=== PATIENT | female | born 1985 | race Caucasian/White ===

== ENCOUNTER 2017-10-03 16:36 | Emergency (ER) | payer MEDICAID ==
[~2017-10-03] VITALS: Ht 162.6 cm; Wt 60.0 kg
[~2017-10-03 16:36] MED LIST: NAPR-1176; PRED-276
[2017-10-03] MEDS ORDERED: MORPHINE SULFATE 4 MG/ML CPJ (NOT FOR IM USE) IV STA (17:56)
[2017-10-03] MEDS ORDERED: KETOROLAC 30MG/ML VIAL IV STA (17:56)
[2017-10-03] MEDS ORDERED: SODIUM CHLORIDE 0.9% 1,000 ML IV ONE (17:56)
[2017-10-03] MEDS ORDERED: ONDANSETRON HCL 4MG/2ML VIAL IV STA (17:56)
[2017-10-03 19:14] LABS: BASOPHILS % 0.3 % (0.0-2.0); EOSINOPHILS % 0.4 % (0.0-5.0); HEMATOCRIT. 38.1 % (36.0-48.0); HEMOGLOBIN. 12.5 g/dL (12.0-16.0); LYMPHOCYTES % 18.7 % (20.0-50.0); MEAN CORPUSCULAR HEMOGLOBIN 24.9 pg (28.0-32.0); MEAN CORPUSCULAR VOLUME 76.2 fL (81.0-99.0); MEAN PLATELET VOLUME 9.9 fl (7.4-10.4); MONOCYTES % 9.5 % (2.0-8.0); NEUTROPHILS % 71.1 % (40.0-76.0); PLATELET 358 x1000/uL (130-400); RED BLOOD CELL COUNT 4.99 mill/uL (4.2-5.4); RED CELL DISTRIBUTION WIDTH 14.1 % (11.6-14.6)
[2017-10-03 19:20] LABS: CHLORIDE 104 mEq/L (98-107)
[2017-10-03 19:45] LABS: B-HCG QUANTITATIVE 70668 mIU/mL (<3)
[2017-10-03 21:30] VITALS: BP 106/63
== END 2017-10-03 21:43 | disposition home or self-care (01) ==
LOC: ER 16:36
DX: O26.891 Other specified pregnancy related conditions, first trimester (principal); M25.512 Pain in left shoulder; R10.30 Lower abdominal pain, unspecified; Z3A.08 8 weeks gestation of pregnancy; V49.88XA Car occupant (driver) (passenger) injured in other specified transport accidents, initial encounter; Y93.89 Activity, other specified; Y92.89 Other specified places as the place of occurrence of the external cause; Y99.8 Other external cause status
CPT/HCPCS: 36415; 76801; 76817; 80053; 81025; 84702; 85025; 86850; 86900; 86901; 96374; 96375; 99285; J2270; J2405; J7030; Z7610

== ENCOUNTER 2020-01-05 21:41 | Emergency (ER) | payer MEDICAID ==
[~2020-01-05] VITALS: Ht 154.9 cm; Wt 71.0 kg
[2020-01-05] MEDS ORDERED: KETOROLAC 60MG/2ML VIAL IM ONE (22:30)
[2020-01-05 23:02] LABS: BASOPHILS % 0.5 % (0.0-2.0); EOSINOPHILS % 4.7 % (0.0-5.0); HEMATOCRIT. 39.1 % (36.0-48.0); HEMOGLOBIN. 12.6 g/dL (12.0-16.0); LYMPHOCYTES % 26.4 % (20.0-50.0); MEAN CORPUSCULAR HEMOGLOBIN 23.9 pg (28.0-32.0); MEAN PLATELET VOLUME 8.9 fl (7.4-10.4); MONOCYTES % 8.2 % (2.0-8.0); NEUTROPHILS % 60.2 % (40.0-76.0); PLATELET 411 x1000/uL (130-400); RED BLOOD CELL COUNT 5.28 mill/uL (4.2-5.4); RED CELL DISTRIBUTION WIDTH 15.2 % (11.6-14.6)
[2020-01-05 23:09] LABS: CHLORIDE 107 mEq/L (98-107)
[2020-01-05 23:18] LABS: HCG SCREEN NEGATIVE
[2020-01-06 00:30] VITALS: BP 119/73
[2020-01-06 01:55] LABS: CLARITY URINE CLEAR (CLEAR); COLOR URINE YELLOW (YELLOW); KETONES URINE NEGATIVE (NEGATIVE); LEUKOCYTE ESTERASE URINE 1+ (NEGATIVE); NITRITE URINE NEGATIVE (NEGATIVE); OCCULT BLOOD URINE NEGATIVE (NEGATIVE); PROTEIN URINE NEGATIVE (NEGATIVE); SPECIFIC GRAVITY URINE 1.017 (1.005-1.030); UROBILINOGEN URINE 0.2 E.U./dL (0.2-1.0)
== END 2020-01-06 03:30 | disposition home or self-care (01) ==
LOC: ER 21:41
DX: N30.00 Acute cystitis without hematuria (principal); M19.90 Unspecified osteoarthritis, unspecified site; Z90.81 Acquired absence of spleen; Z88.0 Allergy status to penicillin; Z91.012 Allergy to eggs; Z91.018 Allergy to other foods
CPT/HCPCS: 36415; 76830; 76856; 80053; 81003; 84703; 85025; 93005; 96372; 99285

== ENCOUNTER 2021-01-18 08:53 | Emergency (ER) | payer BC, MEDICAID ==
[~2021-01-18] VITALS: Ht 152.4 cm; Wt 66.0 kg
[2021-01-18 08:58] VITALS: BP 111/56
[2021-01-18] MEDS ORDERED: P50 MT (09:15)
[2021-01-18] MEDS ORDERED: DICL75TA5 MT (09:16)
== END 2021-01-18 17:27 | disposition home or self-care (01) ==
LOC: ER 09:48
DX: M06.831 Other specified rheumatoid arthritis, right wrist (principal); Z91.14 Patient's other noncompliance with medication regimen; Z90.81 Acquired absence of spleen; Z91.012 Allergy to eggs; Z91.014 Allergy to mammalian meats; Z88.0 Allergy status to penicillin
CPT/HCPCS: 99283

== ENCOUNTER 2021-08-08 21:51 | Emergency (ER) | payer BC, MEDICAID ==
[~2021-08-08] VITALS: Ht 154.9 cm; Wt 67.1 kg
[~2021-08-08 21:51] MED LIST changes: +DICL75TA5 MT; +P50 MT
[2021-08-09] MEDS ORDERED: ACETAMINOPHEN 325MG TABLET PO ONE (02:15)
[2021-08-09 03:31] LABS: CLARITY URINE CLEAR (CLEAR); COLOR URINE YELLOW (YELLOW); KETONES URINE NEGATIVE (NEGATIVE); LEUKOCYTE ESTERASE URINE 2+ (NEGATIVE); NITRITE URINE POSITIVE (NEGATIVE); OCCULT BLOOD URINE NEGATIVE (NEGATIVE); PH URINE 6.5 (4.5-8.0); PROTEIN URINE NEGATIVE (NEGATIVE)
[2021-08-09] MEDS ORDERED: CIPR-263 MT (04:44)
[2021-08-09] MEDS ORDERED: TOPUD PO (04:47)
[2021-08-09 05:10] VITALS: BP 111/60
== END 2021-08-09 05:10 | disposition home or self-care (01) ==
LOC: ER 21:51
DX: N39.0 Urinary tract infection, site not specified (principal); Z88.0 Allergy status to penicillin
CPT/HCPCS: 81001; 81025; 99283

== ENCOUNTER 2021-08-10 02:21 | Emergency (ER) | payer MEDICAID ==
[~2021-08-10] VITALS: Ht 154.9 cm; Wt 66.0 kg
[~2021-08-10 02:21] MED LIST changes: +CIPR-263 MT; +TOPUD PO
[2021-08-10 02:24] VITALS: BP 114/57
== END 2021-08-10 04:00 | disposition left against medical advice (07) ==
LOC: ER 02:21
DX: Z53.21 Procedure and treatment not carried out due to patient leaving prior to being seen by health care provider (principal)
CPT/HCPCS: 93005

== ENCOUNTER 2022-01-05 18:55 | Emergency (ER) | payer MEDICAID ==
[~2022-01-05] VITALS: Ht 167.6 cm; Wt 79.0 kg
[2022-01-05 18:59] VITALS: BP 138/63
== END 2022-01-05 23:00 | disposition left against medical advice (07) ==
LOC: ER 18:55
DX: Z53.21 Procedure and treatment not carried out due to patient leaving prior to being seen by health care provider (principal)

== ENCOUNTER 2022-01-25 18:10 | Inpatient (IN) | payer MEDICAID ==
[~2022-01-25] VITALS: Ht 160 cm; Wt 75.4 kg
[2022-01-25] MEDS ORDERED: ONDANSETRON 4MG ODT PO STA (23:28)
[2022-01-26 00:42] LABS: BASOPHILS % 0.4 % (0.0-2.0); EOSINOPHILS % 0.1 % (0.0-5.0); HEMATOCRIT. 38.4 % (36.0-48.0); HEMOGLOBIN. 12.4 g/dL (12.0-16.0); LYMPHOCYTES % 19.5 % (20.0-50.0); MEAN CORPUSCULAR VOLUME 77.3 fL (81.0-99.0); MEAN PLATELET VOLUME 8.7 fl (7.4-10.4); MONOCYTES % 9.9 % (2.0-8.0); NEUTROPHILS % 70.1 % (40.0-76.0); PLATELET 377 x1000/uL (130-400); RED BLOOD CELL COUNT 4.97 mill/uL (4.2-5.4); RED CELL DISTRIBUTION WIDTH 14.7 % (11.6-14.6)
[2022-01-26 00:49] LABS: CHLORIDE 103 mEq/L (98-107)
[2022-01-26 00:55] LABS: HCG SCREEN NEGATIVE
[2022-01-26] MEDS ORDERED: CEFTRIAXONE 1 G PREMIX 50 ML IV NR (01:00)
[2022-01-26] MEDS ORDERED: AZITHROMYCIN 500MG/250ML 250 ML IV NR (01:00)
[2022-01-26] MEDS ORDERED: MORPHINE SULFATE 4 MG/ML CPJ (NOT FOR IM USE) IV NR (01:00)
[2022-01-26 01:03] LABS: CLARITY URINE CLOUDY (CLEAR); COLOR URINE YELLOW (YELLOW); KETONES URINE 1+ (NEGATIVE); LEUKOCYTE ESTERASE URINE NEGATIVE (NEGATIVE); NITRITE URINE POSITIVE (NEGATIVE); OCCULT BLOOD URINE 2+ (NEGATIVE); PROTEIN URINE TRACE (NEGATIVE); SPECIFIC GRAVITY URINE 1.029 (1.005-1.030); UROBILINOGEN URINE 0.2 E.U./dL (0.2-1.0)
[2022-01-26] MEDS ORDERED: SODIUM CHLORIDE 0.9% 1,000 ML IV ONE (02:30)
[2022-01-26] MEDS ORDERED: MAGNESIUM/ALUMINUM HYDROXIDE/SIMETHICONE 30ML UDC PO PRN (07:45)
[2022-01-26] MEDS ORDERED: ACETAMINOPHEN 325MG TABLET PO PRN (07:45)
[2022-01-26] MEDS ORDERED: CLONIDINE 0.1MG TABLET PO PRN (07:45)
[2022-01-26] MEDS ORDERED: IPRATROPIUM/ALBUTEROL 0.5-3(2.5)MG/3ML NEB NEB PRN (07:45)
[2022-01-26] MEDS ORDERED: NALOXONE HCL 0.4MG/ML VIAL IV PRN (08:15)
[2022-01-26 10:30] VITALS: BP 115/69
[2022-01-26] MEDS: GUAIFENESIN 200MG/10ML SUGAR FREE UDC PO PRN (10:45)
[2022-01-26] MEDS: HYDROCODONE/ACETAMINOPHEN 5/325MG TABLET PO PRN ×2 (10:45→15:19)
[2022-01-26] MEDS: ONDANSETRON HCL 4MG/2ML INJ IV PRN (10:46)
[2022-01-26 11:37] VITALS: BP 115/69
[2022-01-26 12:00] VITALS: BP 115/69
[2022-01-26] MEDS ORDERED: CEFTRIAXONE 1 G PREMIX 50 ML IV SCH (14:15)
[2022-01-26] MEDS: ENOXAPARIN 40MG/0.4ML SYR SUBCUT SCH (15:03)
[2022-01-26 16:00] VITALS: BP 108/71
[2022-01-26 20:00] VITALS: BP 90/49
[2022-01-26] MEDS: ACETAMINOPHEN 325MG TABLET PO PRN (21:15)
[2022-01-27] VITALS: BP 96/61
[2022-01-27] MEDS ORDERED: CEFTRIAXONE 1,000 MG in DEXTROSE 5% WATER 50 ML IV SCH (01:00)
[2022-01-27] MEDS: ACETAMINOPHEN 325MG TABLET PO PRN (03:18)
[2022-01-27] MEDS: DEXT 5%/0.45% NACL 1000ML 1,000 ML IV SCH ×2 (03:18→13:20)
[2022-01-27] MEDS: GUAIFENESIN 200MG/10ML SUGAR FREE UDC PO PRN ×2 (03:51→10:48)
[2022-01-27 04:00] VITALS: BP 103/64
[2022-01-27] MEDS: HYDROCODONE/ACETAMINOPHEN 5/325MG TABLET PO PRN ×2 (05:26→10:39)
[2022-01-27 07:06] LABS: BASOPHILS % 0.4 % (0.0-2.0); EOSINOPHILS % 0.2 % (0.0-5.0); HEMATOCRIT. 33.2 % (36.0-48.0); HEMOGLOBIN. 10.8 g/dL (12.0-16.0); MEAN CORPUSCULAR HEMOGLOBIN 24.9 pg (28.0-32.0); MEAN CORPUSCULAR VOLUME 76.7 fL (81.0-99.0); MEAN PLATELET VOLUME 9.5 fl (7.4-10.4); MONOCYTES % 9.4 % (2.0-8.0); PLATELET 348 x1000/uL (130-400); RED BLOOD CELL COUNT 4.32 mill/uL (4.2-5.4); RED CELL DISTRIBUTION WIDTH 14.6 % (11.6-14.6)
[2022-01-27 08:00] VITALS: BP 104/65
[2022-01-27 08:13] LABS: CHLORIDE 102 mEq/L (98-107)
[2022-01-27] MEDS: IPRATROPIUM/ALBUTEROL 0.5-3(2.5)MG/3ML NEB HHN SCH ×2 (08:47→18:09)
[2022-01-27] MEDS: ENOXAPARIN 40MG/0.4ML SYR SUBCUT SCH (09:00)
[2022-01-27] MEDS ORDERED: METHOTREXATE SODIUM/PF 50 MG/2 ML VIAL IM SCH (09:00)
[2022-01-27] MEDS ORDERED: PREDNISONE 10MG TABLET PO SCH (09:00)
[2022-01-27] MEDS: PANTOPRAZOLE 40MG DR TABLET PO SCH (10:38)
[2022-01-27] MEDS: TRIAMCINOLONE ACETONIDE 0.1% CREAM 15GM TOP SCH ×2 (10:38→21:59)
[2022-01-27] MEDS: FOLIC ACID 1MG TABLET PO SCH (10:38)
[2022-01-27] MEDS: HYDROXYCHLOROQUINE SULFATE 200MG TABLET PO SCH ×2 (10:39→18:54)
[2022-01-27] MEDS ORDERED: LEVOFLOXACIN 250MG TABLET PO SCH (11:00)
[2022-01-27] MEDS: OSELTAMIVIR 75MG CAPSULE PO SCH ×2 (14:59→21:59)
[2022-01-27] MEDS: CELECOXIB 200MG CAPSULE PO SCH ×2 (14:59→18:55)
[2022-01-27] MEDS: PILOCARPINE HCL 5MG TABLET PO SCH ×2 (15:00→21:59)
[2022-01-27] MEDS: PETROLATUM,WHITE OPHTH OINT 3.5GM BOTHEYE SCH ×2 (15:01→21:59)
[2022-01-27 16:00] VITALS: BP 105/64
[2022-01-27] MEDS ORDERED: HYDROCORTISONE 2.5% CREAM 20GM TOP SCH (17:00)
[2022-01-27] MEDS: ONDANSETRON HCL 4MG/2ML INJ IV PRN (18:25)
[2022-01-27] MEDS: PREDNISONE 10MG TABLET PO SCH (18:54)
[2022-01-27 20:00] VITALS: BP 101/62
[2022-01-28] VITALS: BP 107/66
[2022-01-28] MEDS: DEXT 5%/0.45% NACL 1000ML 1,000 ML IV SCH (01:13)
[2022-01-28 04:00] VITALS: BP 113/67
[2022-01-28] MEDS: HYDROCODONE/ACETAMINOPHEN 5/325MG TABLET PO PRN (04:38)
[2022-01-28] MEDS: PILOCARPINE HCL 5MG TABLET PO SCH (05:00)
[2022-01-28 08:00] VITALS: BP 100/57
[2022-01-28] MEDS: IPRATROPIUM/ALBUTEROL 0.5-3(2.5)MG/3ML NEB HHN SCH (08:51)
[2022-01-28] MEDS ORDERED: CELE200C PO (09:00)
[2022-01-28] MEDS ORDERED: OSELTAMIVIR 75MG CAPSULE PO SCH (09:00)
[2022-01-28] MEDS ORDERED: TAM75 PO (09:04)
[2022-01-28] MEDS: ENOXAPARIN 40MG/0.4ML SYR SUBCUT SCH (09:37)
[2022-01-28] MEDS: ONDANSETRON HCL 4MG/2ML INJ IV PRN (09:37)
[2022-01-28] MEDS: HYDROXYCHLOROQUINE SULFATE 200MG TABLET PO SCH (09:37)
[2022-01-28] MEDS: PANTOPRAZOLE 40MG DR TABLET PO SCH (09:37)
[2022-01-28] MEDS: CELECOXIB 200MG CAPSULE PO SCH (09:38)
[2022-01-28] MEDS: PETROLATUM,WHITE OPHTH OINT 3.5GM BOTHEYE SCH (09:38)
[2022-01-28] MEDS: TRIAMCINOLONE ACETONIDE 0.1% CREAM 15GM TOP SCH (09:38)
[2022-01-28] MEDS: PREDNISONE 10MG TABLET PO SCH (09:38)
[2022-01-28] MEDS: FOLIC ACID 1MG TABLET PO SCH (09:38)
[2022-01-28 10:28] VITALS: BP 100/57
[2022-01-28 11:59] LABS: BASOPHILS % 0.6 % (0.0-2.0); EOSINOPHILS % 0.2 % (0.0-5.0); HEMATOCRIT. 36.4 % (36.0-48.0); HEMOGLOBIN. 11.7 g/dL (12.0-16.0); LYMPHOCYTES % 27.5 % (20.0-50.0); MEAN CORPUSCULAR HEMOGLOBIN 24.9 pg (28.0-32.0); MEAN CORPUSCULAR VOLUME 77.3 fL (81.0-99.0); MEAN PLATELET VOLUME 9.5 fl (7.4-10.4); MONOCYTES % 9.3 % (2.0-8.0); NEUTROPHILS % 62.4 % (40.0-76.0); PLATELET 389 x1000/uL (130-400); RED BLOOD CELL COUNT 4.71 mill/uL (4.2-5.4)
[2022-01-29 09:43] LABS: CHLORIDE 103 mEq/L (98-107)
[2022-01-29 09:49] LABS: TOTAL IRON BINDING CAPACITY 359 ug/dL (250-450)
[2022-01-29 13:07] LABS: ANTI-DNA DOUBLE STRANDED QUANT 2 IU/mL (0-9)
[2022-01-30 10:06] LABS: RNP ANTIBODY 0.2 AI (0.0-0.9)
[2022-01-30 13:10] LABS: ATYPICAL P-ANCA <1:20 titer (Neg:<1:20); CYTOPLASMIC C-ANCA <1:20 titer (Neg:<1:20); PERINUCLEAR P-ANCA <1:20 titer (Neg:<1:20)
[2022-01-30 17:06] LABS: ANTI-MYELOPEROXIDASE AB < 0.2 units (0.0-0.9); ANTI-PROTEINASE 3 ABS < 0.2 units (0.0-0.9)
[2022-01-31 09:10] LABS: G6PD QUANTITATIVE 329 (127-427)
[2022-02-03 14:07] LABS: ANA IFA Positive (.)
== END 2022-01-28 13:30 | disposition home or self-care (01) | DRG 247 ==
LOC: ER 18:10 → 7WST 01-26 02:25 → SUPCPDRO 01-26 07:24 → ENRESERV 01-26 08:25
PROVIDERS: ADMIT Internal Medicine; ATTEND Internal Medicine
DX: K56.609 Unspecified intestinal obstruction, unspecified as to partial versus complete obstruction (principal); I50.9 Heart failure, unspecified; M32.9 Systemic lupus erythematosus, unspecified; R04.2 Hemoptysis; J10.1 Influenza due to other identified influenza virus with other respiratory manifestations; M06.9 Rheumatoid arthritis, unspecified; N30.00 Acute cystitis without hematuria; Z20.822 Contact with and (suspected) exposure to COVID-19; R06.03 Acute respiratory distress; Z86.2 Personal history of diseases of the blood and blood-forming organs and certain disorders involving the immune mechanism; Z87.59 Personal history of other complications of pregnancy, childbirth and the puerperium; Z88.0 Allergy status to penicillin; Z90.81 Acquired absence of spleen
CPT/HCPCS: 36415; 71045; 71275; 74177; 80048; 80053; 81003; 82955; 83520; 83540; 83550; 83605; 84145; 84703; 85025; 85041; 85379; 85651; 86160; 86225; 86235; 86256; 86431; 87015; 87045; 87420; 87426; 87427; 87449; 87804; 89055; 93970; 94640; 99285; A9556; J0456; J0696; J1650; J2270; J2405; J7060; J7512; J9260; Q0162

== ENCOUNTER 2023-02-12 03:11 | Emergency (ER) | payer MEDICAID ==
[~2023-02-12] VITALS: Ht 165.1 cm; Wt 76.0 kg
[~2023-02-12 03:11] MED LIST changes: +CELE-116 PO; -CIPR-263 MT; +DOXY100C5 MT; +ESCI5SOL2 PO; +FAMO20TA8 MT; +FOLI-43 MT; +HYDR200T35 PO; +HYDR453.3 TP; +METH2.5T MT; +METR60GE4 TP; -NAPR-1176; -P50 MT; -PRED-276; +PRED10TA MT; +TC1C15 TP; +WARF2.5T83 MT
[2023-02-12 03:31] VITALS: BP 116/70; PULSE 86; RESP 18; O2SAT 97
[2023-02-12 04:12] LABS: ALANINE AMINOTRANSFERASE 16 IU/L (10-49); ALBUMIN 4.1 g/dL (3.2-4.8); ASPARTATE AMINOTRANSFERASE 17 IU/L (<34); BILIRUBIN TOTAL 0.3 mg/dL (0.1-1.0); CARBON DIOXIDE 25 mEq/L (21-32); CHLORIDE 105 mEq/L (98-107); CREATININE 0.4 mg/dL (0.6-1.0); GLUCOSE 99 mg/dL (70-105); POTASSIUM 4.1 mEq/L (3.5-5.1); PROTEIN TOTAL 8.1 g/dL (6.0-8.3); SODIUM 138 mEq/L (136-145); UREA NITROGEN BLOOD 15 mg/dL (9-23)
[2023-02-12 04:27] LABS: DIFFERENTIAL COMMENT 0; EOSINOPHILS % 1.7 % (0.0-5.0); HEMATOCRIT. 37.5 % (36.0-48.0); LYMPHOCYTES % 31.9 % (20.0-50.0); MEAN CORPUSCULAR HEMOGLOBIN 25.1 pg (28.0-32.0); MEAN CORPUSCULAR HGB CONC 32.1 g/dL (31.0-37.0); MEAN CORPUSCULAR VOLUME 78.3 fL (81.0-99.0); MEAN PLATELET VOLUME 9.5 fl (7.4-10.4); MONOCYTES % 5.8 % (2.0-8.0); NEUTROPHILS % 59.6 % (40.0-76.0); PLATELET 423 x1000/uL (130-400); RED BLOOD CELL COUNT 4.79 mill/uL (4.2-5.4); RED CELL DISTRIBUTION WIDTH 13.6 % (11.6-14.6)
[2023-02-12 04:57] LABS: CLARITY URINE CLEAR (CLEAR); COLOR URINE YELLOW (YELLOW); GLUCOSE URINE NEGATIVE (NEGATIVE); KETONES URINE NEGATIVE (NEGATIVE); LEUKOCYTE ESTERASE URINE NEGATIVE (NEGATIVE); NITRITE URINE NEGATIVE (NEGATIVE); OCCULT BLOOD URINE NEGATIVE (NEGATIVE); PH URINE 6.5 (4.5-8.0); PROTEIN URINE NEGATIVE (NEGATIVE); SPECIFIC GRAVITY URINE 1.021 (1.005-1.030); UROBILINOGEN URINE 0.2 E.U./dL (0.2-1.0)
== END 2023-02-12 08:29 | disposition left against medical advice (07) ==
LOC: ER 03:11
DX: Z53.21 Procedure and treatment not carried out due to patient leaving prior to being seen by health care provider (principal)
CPT/HCPCS: 36415; 80053; 81003; 81025; 85025; 99281

== ENCOUNTER 2023-02-28 22:18 | Emergency (ER) | payer MEDICAID ==
[~2023-02-28] VITALS: Ht 152.4 cm; Wt 80.0 kg
[2023-02-28 22:48] VITALS: O2SAT 97
[2023-03-01] MEDS ORDERED: CLIN-194 MT (00:51)
[2023-03-01] MEDS ORDERED: DEXAMETHASONE 0.5MG/5ML ORAL SYR PO ONE (01:00)
[2023-03-01] MEDS ORDERED: DEXAMETHASONE 4MG/ML 1ML VIAL PO NR (01:00)
[2023-03-01 03:05] VITALS: BP 120/81; PULSE 100; RESP 18; TEMP 98.9
== END 2023-03-01 01:12 | disposition home or self-care (01) ==
LOC: ER 22:18
DX: R05.9 Cough, unspecified (principal); J02.9 Acute pharyngitis, unspecified; M06.9 Rheumatoid arthritis, unspecified; R07.89 Other chest pain; Z79.899 Other long term (current) drug therapy
CPT/HCPCS: 71045; 99283; J8540